=== PATIENT | female | born 1980 | race Caucasian/White ===

== ENCOUNTER 2016-09-24 22:09 | Emergency (ER) | payer OTHER ==
--- NOTE | ~2016-09-24 | CR282 ---
[facility] A Service of [facility] [place] & [facility] RADIOLOGY TEXT RESULTS PATIENT: JAZMYNE BEAR LOCATION: SED : 80 UNIT #: [id number] AGE: [address]: Daly Girard SEX: F ORDER DR: [id number] [address] [address] [id number] E MR#: [id number] Acc #: [id number] NAME: JAZMYNE BEAR : 1980 SEX: F STUDY DATE/TIME: 09/24/2016 22:07 UNIT: SED ROOM: STUDY DESCRIPTION: CR Wrist Min 3 View Rt Attending Physician: Daly Girard Pa-C Ordering Physician: Daly Girard Pa-C Primary Care Physician: No Primary Care Physician MEDICAL IMAGING REPORT This report is preliminary unless electronic signature is present. EXAM 3 views of the right wrist HISTORY Right wrist pain after tripping and falling 1 hour ago FINDINGS This patient has an obliquely-oriented fracture through the distal radius with extension to the articular surface and mild radial displacement. This fracture is mildly comminuted. There is also an ulnar styloid fracture. There is overlying soft tissue swelling. No other fractures are seen. IMPRESSION Obliquely oriented fracture through the distal radius with extension to the articular surface. The patient is also noted to have an ulnar styloid fracture as well. Dictated by... Monse Resendiz M.D. THIS IS AN ELECTRONICALLY VERIFIED REPORT Monse Resendiz M.D. at 09/27/2016 1:20 PM AFF/ea TD: 09/25/2016 01:51 JOB #: [id number] MEDICAL IMAGING REPORT
--- NOTE | ~2016-09-24 | CR142 ---
[facility] A Service of [facility] [place] & [facility] RADIOLOGY TEXT RESULTS PATIENT: JAZMYNE BEAR LOCATION: SED : 80 UNIT #: [id number] AGE: [address]: Daly Girard SEX: F ORDER DR: [id number] [address] [address] [id number] E MR#: [id number] Acc #: [id number] NAME: JAZMYNE BEAR : 1980 SEX: F STUDY DATE/TIME: 09/24/2016 22:07 UNIT: SED ROOM: STUDY DESCRIPTION: CR Hand Min 3 Views Rt Attending Physician: Daly Girard Pa-C Ordering Physician: Daly Girard Pa-C Primary Care Physician: Primary Care Physician No MEDICAL IMAGING REPORT This report is preliminary unless electronic signature is present. EXAM Right hand 3 views HISTORY Hand pain after fall and injury today. FINDINGS 3 views of the right hand demonstrate oblique fracture of the distal radial metaphysis extending into the radiocarpal joint at the level of the lunate with 2 mm lateral displacement of the dominant distal fracture fragment. Small comminuted fracture along the ulnar margin of the fracture line. There is also a transverse fracture through the base of the ulnar styloid process with 2 mm separation of the fracture fragment. Oblique fracture through the volar base of the middle phalanx of the third digit with 1-2 mm separation of the fracture fragment. Old healed fracture deformity midshaft fifth metacarpal. No dislocation. IMPRESSION 1. Oblique fracture through the volar base of the middle phalanx of the third digit with 1-2 mm separation of the fracture fragment. 2. Oblique fracture through the distal radial metaphysis extending into the radiocarpal joint at the level of the lunate with 2 mm separation of the dominant fracture fragment and a small comminuted fracture fragment along the ulnar margin of the fracture line. 3. Transverse fracture through the base of the ulnar styloid process with 2 mm separation of the fracture fragment. Dictated by... Kyler Nur M.D. THIS IS AN ELECTRONICALLY VERIFIED REPORT [facility] A Service of [facility] & [facility] RADIOLOGY TEXT RESULTS PATIENT: JAZMYNE BEAR LOCATION: SED : 80 UNIT #: [id number] AGE: [address]: Daly Girard PAC SEX: F ORDER DR: Kyler Nur M.D. at 09/25/2016 3:37 PM DFL/rnr TD: 09/25/2016 01:49 JOB #: [id number] MEDICAL IMAGING REPORT
[~2016-09-24 22:09] MED LIST: NO MEDICATIONS
== END 2016-09-24 23:11 | disposition home or self-care (01) ==
LOC: SED 22:09
DX: S62.602A Fracture of unspecified phalanx of right middle finger, initial encounter for closed fracture (principal); S52.91XA Unspecified fracture of right forearm, initial encounter for closed fracture; W01.0XXA Fall on same level from slipping, tripping and stumbling without subsequent striking against object, initial encounter; Y92.009 Unspecified place in unspecified non-institutional (private) residence as the place of occurrence of the external cause
CPT/HCPCS: 29280; 73110; 73130; 96372; 99283; J1885

== ENCOUNTER 2017-02-10 16:59 | Emergency (ER) | payer OTHER | END 2017-02-10 17:35 | disposition home or self-care (01) | LOC: SED 16:59 | DX: L03.115 Cellulitis of right lower limb (principal); F17.210 Nicotine dependence, cigarettes, uncomplicated | CPT/HCPCS: 99283 ==